=== PATIENT | male | born 1955 | race Caucasian/White ===

== ENCOUNTER → 2016-11-10 | Outpatient (CLI) | payer OTHER ==
--- NOTE | 2016-11-10 16:11 | CT ---
EXAMINATION TYPE: CT iac wo con DATE OF EXAM: 11/10/2016 COMPARISON: NONE HISTORY: Hearing loss,on the Lt, cholesteatoma CT DLP: 300mGycm. Automated exposure control for dose reduction was used. FINDINGS: The external auditory canals are patent bilaterally. Mastoid air cells show no evidence of abnormal opacification bilaterally. The middle ear ossicles are symmetric and unremarkable. There is no evidence of suspicious surrounding soft tissue density to suggest cholesteatoma. The scutum is preserved bilaterally. The epitympanum, mesotympanum, and hypotympanum are all symmetric and clear bilaterally. The cochlea and the semicircular canals are symmetric and unremarkable. Vestibular aqu educt and internal carotid canal appear unremarkable. Temporomandibular joints are maintained bilate rally. IMPRESSION: NO SIGNIFICANT ABNORMALITY SEEN TO ACCOUNT FOR PATIENT'S SYMPTOMS.
== END | disposition home or self-care (01) ==
LOC: RADCTMAIN 12:50
PROVIDERS: ATTEND Otolaryngology
DX: H71.90 Unspecified cholesteatoma, unspecified ear (principal); H91.90 Unspecified hearing loss, unspecified ear
CPT/HCPCS: 70480

== ENCOUNTER → 2017-09-30 | Outpatient (CLI) | payer OTHER | END | disposition home or self-care (01) | LOC: LABWHC1 15:26 | PROVIDERS: ATTEND Internal Medicine Gastroenterology | DX: K50.00 Crohn's disease of small intestine without complications (principal) | CPT/HCPCS: 36415 ==

== ENCOUNTER 2018-01-04 17:07 | Emergency (ER) | payer OTHER ==
[2018-01-04 17:31] VITALS: BP 158/98; PULSE 83; RESP 18; TEMP 98.3
[2018-01-04] MEDS ORDERED: DIPH,PERTUS(ACELL)TETVAC-LF 0.5 ML VIAL IM ONE (17:57)
--- NOTE | 2018-01-04 18:00 | ED ---
Wound/Laceration HPI - General Chief Complaint: Wound/Laceration Stated Complaint: finger laceration Time Seen by Provider: 01/04/18 17:53 Source: patient, RN notes reviewed Mode of arrival: ambulatory Limitations: no limitations - History of Present Illness Initial Comments: This is a 62-year-old male who presents to the emergency department with chief complaint of right finger laceration. Patient states that at 3:45 this evening he was cleaning his lawnmower. He states that the lawnmower lacerated his right fourth finger. Denies blood thinner use. States he has normal sensation and range of motion. Patient states he believes he is not up-to-date with tetanus vaccination. Denies any other injuries or trauma. Denies fever, chills , chest pain, shortness of breath, abdominal pain, nausea or vomiting, numbness or tingling, headache or vision changes. - Related Data Home Medications Medication Instructions Recorded Confirmed Adalimumab [Humira Pen] 1 tab PO BID 08/05/15 01/04/18 azaTHIOprine [Imuran] 1 tab PO BID 08/05/15 01/04/18 Previous Rx's Medication Instructions Recorded Cephalexin [Keflex] 500 mg PO Q12HR #20 cap 01/04/18 Allergies Allergy/AdvReac Type Severity Reaction Status Date / Time No Known Allergies Allergy Verified 01/04/18 17:29 Review of Systems ROS Statement: Those systems with pertinent positive or pertinent negative responses have been documented in the HPI. ROS Other: All systems not noted in ROS Statement are negative. Past Medical History Additional Past Medical History / Comment(s): chronns History of Any Multi-Drug Resistant Organisms: None Reported Additional Past Surgical History / Comment(s): colon surgery (2003) Past Psychological History: No Psychological Hx Reported Smoking Status: Never smoker Past Alcohol Use History: None Reported Past Drug Use History: None Reported General Exam - General Exam Comments Initial Comments: General: Awake and alert, well-developed; in no apparent distress. HEENT: Head atraumatic, normocephalic. Pupils are equal, round and reactive to light. Extraocular movements intact. Oropharynx moist without erythema or exudate. Neck: Supple. Normal ROM. Cardiovascular: Regular rate and rhythm. No murmurs, rubs or gallops. Chest symmetrical. Respiratory: Lungs clear to auscultation bilaterally. No wheezes, rales or rhonchi. Normal respiratory effort with no use of accessory muscles. Musculoskeletal: Normal range of motion of the right fourth finger. There is an approximately 2 cm flap-like laceration dorsal aspect of the right fourth finger between the MCP and over PIP joint. Sensation is intact. Radial pulses are 2+ equal and palpable bilaterally. Bleeding is controlled. Skin: Herrick, warm and dry without rashes. Neurological: Alert and oriented x3. CN II-XII grossly intact. Speech is fluent and answers are appropriate. No focal neuro deficits. Psychiatric: Normal mood and affect. No overt signs of depression or anxiety noted. Limitations: no limitations Course Vital Signs 01/04/18 17:29 Temperature 98.3 F Pulse Rate 83 Respiratory 18 Rate Blood Pressure 158/98 O2 Sat by Pulse 99 Oximetry Procedures - Laceration Laceration #1 Consent Obtained: verbal consent Indication: laceration Site: hand (dorsal right 4th finger) Size (cm): 2 Description: linear, flap Depth: simple, single layer Anesthetic Used: lidocaine 1% Anesthesia Technique: nerve block Amount (mls): 2 Pre-repair: wound explored, irrigated extensively, deep structures intact Type of Sutures: nylon Size of Sutures: 5-0 Number of Sutures: 5 Technique: simple, interrupted Patient Tolerated Procedure: well, no complications Medical Decision Making - Medical Decision Making This is a 62-year-old male who presents to the emergency department with chief complaint of right fourth finger laceration. Patient was made up-to-date with tetanus vaccination. Patient sustained an approximately 2 cm flap-like laceration to the dorsal aspect of the right fifth finger. Wound is thoroughly cleansed, irrigated and examined. Extensor tendon was visualized but no obvious injuries. Patient does have normal range of motion. Neurovascularly intact. 5 sutures were placed and patient tolerated well without complication. Patient will be started on Keflex antibiotics. He will be given contact information to follow-up with Dr. Hollingsworth if continuous pain or decreased range of motion of the finger. Patient is in agreement with plan and voices understanding. Vital signs are stable and he is in no acute distress. He will be discharged home at this time. All questions answered. - Radiology Data Radiology results: report reviewed Right fourth finger x-ray impression: No acute process. Disposition Clinical Impression: Finger laceration Disposition: HOME SELF-CARE Condition: Good Instructions: Finger Laceration (ED) Additional Instructions: Please take medications as prescribed. Please follow-up with Dr. Hollingsworth if continuous pain or decreased range of motion of the finger. Please follow up with primary care provider within 1-2 days. Return to emergency department if symptoms should worsen or any concerns arise. Prescriptions: Cephalexin [Keflex] 500 mg PO Q12HR #20 cap Is patient prescribed a controlled substance at d/c from ED?: No Referrals: Geo Ramos MD [Primary Care Provider] - 1-2 days Gagandeep Hollingsworth DO [Doctor of Osteopathic Medicine] - 1-2 days Time of Disposition: 19:21
--- NOTE | 2018-01-04 19:01 | XR ---
PROCEDURE: XR fourth finger RT - 3 views DATE AND TIME: 01/04/2018 6:44 PM REFERRING PHYSICIAN: Jessica Patel CLINICAL INDICATION: PH[facility], 4th finger lac lawnmower blade TECHNIQUE: Department protocol. COMPARISON: None FINDINGS: There is no fracture or malalignment. The soft tissues are definitive for radiopaque foreig n body. IMPRESSION: NO ACUTE PROCESS.
[2018-01-04] MEDS ORDERED: CEPHALEXIN 500 MG CAP PO STA (19:20)
== END 2018-01-04 19:34 | disposition home or self-care (01) ==
LOC: EC 17:07
DX: S61.214A Laceration without foreign body of right ring finger without damage to nail, initial encounter (principal); Z23 Encounter for immunization; Z87.19 Personal history of other diseases of the digestive system; Z79.899 Other long term (current) drug therapy; W28.XXXA Contact with powered lawn mower, initial encounter; Y93.89 Activity, other specified
CPT/HCPCS: 12001; 90471; 90715; 99283

== ENCOUNTER → 2018-05-09 | Outpatient (CLI) | payer OTHER ==
--- NOTE | 2018-05-09 16:14 | US ---
EXAMINATION TYPE: US thyroid st tissue head/neck DATE OF EXAM: 05/09/2018 COMPARISON: NONE CLINICAL HISTORY: R22.1 localized neck swelling. Patient states having an increase in the medication Humira and has noticed his anterior neck has increased in size. Right and left anterior neck scanned. No prominent masses, lesions or fluid collections identified. IMPRESSION: 1. No obvious cystic or solid area noted within the [id number] ultrasound neck.
== END | disposition home or self-care (01) ==
LOC: RADUSWWP 15:15
PROVIDERS: ATTEND Otolaryngology
DX: R22.1 Localized swelling, mass and lump, neck (principal)
CPT/HCPCS: 76536

== ENCOUNTER → 2022-05-02 | Outpatient (CLI) | payer OTHER | END | disposition home or self-care (01) | LOC: LABPAT 11:44 | PROVIDERS: ATTEND Orthopaedic Surgery | DX: Z01.812 Encounter for preprocedural laboratory examination (principal); M17.12 Unilateral primary osteoarthritis, left knee | CPT/HCPCS: 87070 ==

== ENCOUNTER 2022-05-26 10:37 | Day surgery (SDC) | payer OTHER ==
--- NOTE | 2022-05-25 09:47 | P.HPOR ---
History of Present Illness H&P Date: 05/25/22 Chief Complaint: Left knee pain The patient is a 66 year old male that presents with progressive left knee pain secondary to osteoarthrosis despite conservative measures including medications, injections and activity modifications. He notes pain that significantly limits his normal function and activities. Review of Systems as per HPI Past Medical History Additional Past Medical History / Comment(s): crohn's disease, leaky heart valve follows with [facility] History of Any Multi-Drug Resistant Organisms: None Reported Past Surgical History: Bowel Resection, Hernia Repair Additional Past Surgical History / Comment(s): colon surgery (2003), left knee arthroscopy Past Anesthesia/Blood Transfusion Reactions: No Reported Reaction Smoking Status: Former smoker Medications and Allergies Home Medications Medication Instructions Recorded Confirmed Type Adalimumab [Humira Pen] 1 injection INJ WEEKLY 08/05/15 05/20/22 History azaTHIOprine [Imuran] 1 tab PO BID 08/05/15 05/20/22 History Sertraline [Zoloft] 25 mg PO DAILY 05/20/22 05/20/22 History rOPINIRole HCL [rOPINIRole HCL ER 6 mg PO HS 05/20/22 05/20/22 History (XL)] Allergies Allergy/AdvReac Type Severity Reaction Status Date / Time No Known Allergies Allergy Verified 05/20/22 17:17 Physical Examination - Knee left Appearance: effusion Effusion grade: grade 2 Varus alignment in stance: 5 degrees Tenderness with palpation: medial Pain: with flexion Gait: limping ROM: extension: -5 degrees ROM: flexion: 110 degrees Strength: extension: 5/5 Strength: flexion: 5/5 Meniscal tests: medial meniscal tests: positive, medial joint line pain: positive Results The patient is a well developed well nourished male of mesomorphic habitus. HEENT exam is nonfocal, neck is supple. He has painless passive ROM of his left hip. Straight leg raise is negative. His distal neurovascular exam is intact in the left lower extremity. - Diagnostic results Knee x-ray: image reviewed (3 views of the left knee show severe medial compartment osteoarthrosis with bone on bone changes.) Assessment and Plan Assessment: Left knee severe tricompartmental osteoarthrosis crohn's disease Plan: I talked to the patient at length regarding his condition along with treatment options. He opts to proceed with surgery. We will plan to proceed with left total knee arthroplasty. Risks and benefits were discussed at length in layman's terms. We will institute DVT prophylaxis postoperatively.
[~2022-05-26 10:37] MED LIST: ACETAMINOPHEN TAB 500 MG TAB PO PRN; DEXAMETHASONE SOD PHOSPHATE 4 MG/ML 1 ML VIAL IV ONE; HYDROmorphone 0.5 MG/0.5 ML SYRINGE IVP PRN; LIDOCAINE 1% (10MG/ML) FOR IV START INTRADERMA PRN; MELOXICAM 7.5 MG TAB PO PRN; ONDANSETRON 4 MG/2 ML VIAL IVP ONE; TRANEXAMIC ACID IN NACL,ISO-OS 1,000 MG in SALINE 1 100ML.BAG IVPB PRN
[2022-05-26] MEDS: LACTATED RINGERS 1,000 ML IV SCH (11:36)
[2022-05-26] MEDS ORDERED: MIDAZOLAM 2 MG/2 ML VIAL IVP ONE (11:40)
[2022-05-26] MEDS ORDERED: fentaNYL (PF) 50 MCG/1 ML VIAL IVP ONE (11:42)
[2022-05-26] MEDS ORDERED: MIDAZOLAM 2 MG/2 ML VIAL ONE (12:50)
[2022-05-26] MEDS ORDERED: PROPOFOL 10 MG/ML 20 ML VIAL IV ONE (12:50)
[2022-05-26] MEDS ORDERED: LIDOCAINE 2% INJ 20 MG/ML (2 ML VIAL) ONE (12:50)
[2022-05-26] MEDS ORDERED: SUCCINYLCHOLINE CHLORIDE 200 MG/10 ML VIAL IV ONE (12:50)
[2022-05-26] MEDS ORDERED: HYDROmorphone (PF) 1 MG/ML ONE (12:50)
[2022-05-26] MEDS ORDERED: fentaNYL (PF) 50 MCG/ML 2 ML AMP ONE (12:50)
[2022-05-26] MEDS ORDERED: ROCURONIUM 10 MG/ML (5 ML VIAL) IV ONE (12:50)
[2022-05-26] MEDS ORDERED: ROPIVACAINE 5 MG/ML 30 ML VIAL ONE (12:50)
[2022-05-26] MEDS ORDERED: GLYCOPYRROLATE 0.2 MG/ML 2 ML VIAL ONE (12:50)
[2022-05-26] MEDS ORDERED: NEOSTIGMINE 1 MG/ML 10 ML VIAL ONE (12:50)
[2022-05-26] MEDS ORDERED: DEXAMETHASONE SOD PHOSPHATE 4 MG/ML 1 ML VIAL ONE (12:50)
[2022-05-26] MEDS ORDERED: ceFAZolin 3,000 MG in SODIUM CHLORIDE 0.9% IRRIGATIO 3,000 ML IRRIGATION ONE (13:20)
[2022-05-26] MEDS ORDERED: LACTATED RINGERS 1,000 ML IV ONE (14:33)
[2022-05-26] MEDS ORDERED: HYDROmorphone 0.5 MG/0.5 ML SYRINGE IVP PRN (14:34)
[2022-05-26] MEDS ORDERED: HYDROcodone/APAP 5-325MG 1 EACH TAB PO PRN (14:34)
[2022-05-26] MEDS ORDERED: MAGNESIUM HYDROXIDE 2,400 MG/10 ML CUP PO PRN (14:34)
[2022-05-26] MEDS ORDERED: HYDROmorphone 1 MG/ML 1 ML SYRINGE IVP PRN (14:34)
[2022-05-26] MEDS ORDERED: NALOXONE 0.4 MG/ML 1 ML VIAL IV PRN (14:34)
[2022-05-26] MEDS ORDERED: hydrOXYzine pamoate 25 MG CAP PO PRN (14:37)
--- NOTE | 2022-05-26 14:58 | P.OP ---
Date of Procedure: 05/26/22 Preoperative Diagnosis: Left knee severe tricompartmental osteoarthritis Postoperative Diagnosis: Same Procedure(s) Performed: Left total knee arthroplastycementedcruciate retaining Implants: Depuy Attune size 6 cemented femoral component, size 5 cemented tibial component, 9 mm articular surface, 35 mm cemented patellar component. This is a cruciate retaining implant. Anesthesia: [facility] Surgeon: Alex Arora Managed Care Coordinator #1: Darian Merino Estimated Blood Loss (ml): 50 Pathology: other (Bone fragments) Condition: stable Disposition: PACU Indications for Procedure: The patient's a 66-year-old male who presents with progressive left knee pain secondary to osteoarthritis despite conservative measures. A discussion of the risks and benefits of operative intervention versus continued conservative measures made with patient. He opted to proceed with surgery. Operative risks to include infection, neurovascular injury, development of blood clots, fracture, component loosening/failure and possible need for subsequent procedures was discussed. Informed consent was obtained. Operative Findings: As below Description of Procedure: The patient was brought to the operating room, and after induction of spinal anesthesia the left lower extremity was prepped and draped in a normal fashion. The tourniquet was inflated to 270 mmHg. A longitudinal incision extending 3 finger breaths above the superior pole of the patella extending to the medial aspect the tibial tubercle was then made. The skin and subcutaneous tissues were divided sharply. Electrocautery was used for hemostasis. A medial parapatellar arthrotomy was then performed. The medial soft tissues to include the superficial and deep portions of the medial collateral ligament as well as t he medial hamstring tendons were elevated subperiosteally. The proximal medial tibia osteophytes were carefully removed. The patella was everted. The knee was flexed. A portion of the retropatellar fat pad was excised sharply. The anterior cruciate ligament was sacrificed. A starting hole was made in the distal femur 1 cm anterior to the posterior cruciate origin. An intramedullary femoral guide was gently inserted planning on 5 valgus distal cut with 9 mm distal resection. The cutting block was pinned in place. The distal cut was then made. The posterior referencing sizing guide was utilized. 3 of external rotation was built into the system and verified off the trans- epicondylar axis and the posterior condyles. I felt size 6 was most appropriate. The cutting block was pinned in place. The anterior, posterior, and chamfer cuts were then made. The bone fragments were removed. A sulcus cut was then made with the appropriate guide. The trial size 6 femoral component w as then placed and was fully seated. There was good anterior to posterior and medial to lateral fit. The distal peg holes were then drilled. The trial component was then removed. Attention was then paid towards preparing the proximal tibia. An extra medullary guide was utilized in line with the tibial shaft and second metatarsal distally. A 7 posterior slope was planned. I planned on 2 mm resection from the medial compartment. The cutting block was pinned in place. The proximal tibial cut was then made. The bone was removed in one fragment. The remnants of the medial and lateral menisci were excised the capsule junction with electrocautery. The tibia sized most appropriately at size 5. The posterior osteophytes off the distal femur were carefully removed with a curved osteotome. The trial tibial and femoral components were placed along with a 9 millimeters articular surface. I was able to obtain full flexion and extension with good stability with varus and valgus stress. After several flexion and extension cycles, the tibial rotation was marked with electrocautery in line with the medial one third of the tibial tubercle. Attention was then paid towards preparing the patella. A patella reamer was utilized taking this down to 14 mm of bone stock. A good flush cut was made. The patella sized most appropriately at 35 millimeters. The peg holes were then drilled. The trial component was placed. The knee was taken through a range of motion. I had good patellofemoral tracking with no hands technique. The trial components were then removed. The tibia was prepared in the appropriate rotation with appropriate drill and keel punch. The flexion and extension gaps were checked and felt to be symmetric. The bony surfaces were prepared with pulsatile lavage and dried. The deep tibial component was then cemented in place and was fully seated. Excess cement was removed. The femoral component was cemented in place and was fully seated. Again excess cement was removed. The trial 9 millimeters surface was then inserted in the knee was put in full extension. The patella component was cemented in place. After the cement had sufficiently hardened, the knee was again taken through a range of motion. Again there was good stability in flexion and extension with varus and valgus stress. The trial articular surface was then removed. The final articular surface was placed and was impacted. Care was taken to avoid any soft tissue interposition. Pulsatile lavage was again utilized. The tourniquet was deflated with approximately 60 minutes total tourniquet time. There was minimal drainage therefore a deep drain was not placed. The medial parapatellar arthrotomy was then closed with #2 Ethibond suture. The subcutaneous tissues were reapproximated interrupted 2- 0 Vicryl sutures. The skin was reapproximated with 3-0 subarticular strata fix suture. Skin tape and adhesive was applied. A sterile dressing was applied. The patient was then awoken from sedation and transferred to recovery room in good condition. Blood loss was estimated at 50 milliliters. No complications were incurred. Sponge and needle counts were correct at the end the case. Darian JOSE assisted during the major components this case to include exposure, bone resection, and implantation.
[2022-05-26] MEDS ORDERED: ROPIVACAINE 0.2%-NS ON-Q PUMP 1,090 MG, EMPTY PAIN BALL 1 EACH MISCELLANE PRN (15:12)
--- NOTE | 2022-05-26 15:14 | P.ANPRN ---
Procedure Note - Anesthesia - Nerve Block Performed Left Adductor Canal Time Out Performed: Yes (11:40) Date of Procedure: 05/26/22 Procedure Start Time: :40 Procedure Stop Time: :48 Location of Patient: PreOp Indication: Acute Post-Operative Pain, Requested by Surgeon (Dr Arora) Sedation Type: Sedate with meaningful contact maintained Preparation: Sterile Prep, Sterile Dressing Position: Supine Catheter: Indwelling Needle Types: Pajunk Needle Gauge: 21 Ultrasound used to visualize needle placement: Yes Ultrasound used to observe medication spread: Yes Injectate: 0.5% Ropivacaine (see comment for volume) (15cc) Blood Aspirated: No Pain Paresthesia on Injection Noted: No Resistance on Injection: Normal Image Stored and Saved: Yes Events: Uneventful and Well Tolerated
--- NOTE | 2022-05-26 15:15 | P.ANPRN ---
Procedure Note - Anesthesia - Nerve Block Performed Left iPack Time Out Performed: Yes Date of Procedure: 05/26/22 Procedure Start Time: 11:49 Procedure Stop Time: 11:54 Location of Patient: PreOp Indication: Acute Post-Operative Pain, Requested by Surgeon (Dr Arora) Sedation Type: Sedate with meaningful contact maintained Preparation: Sterile Prep Position: Supine Catheter: None Needle Types: Pajunk Needle Gauge: 21 Ultrasound used to visualize needle placement: Yes Ultrasound used to observe medication spread: Yes Injectate: 0.5% Ropivacaine (see comment for volume) (15cc +5cc PF Normal saline) Blood Aspirated: No Pain Paresthesia on Injection Noted: No Resistance on Injection: Normal Image Stored and Saved: Yes Events: Uneventful and Well Tolerated
--- NOTE | 2022-05-26 16:39 | P.CONS ---
History of Present Illness - Reason for Consult Consult date: 05/26/22 med management - History of Present Illness Patient is a 66-year-old male with history of osteoarthritis and Crohn's disease presenting for elective left total knee arthroplasty. [facility] has been consulted for medical management. Currently, patient denies any chest pain, shortness of breath, abdominal pain, palpitations, lightheadedness, diarrhea, constipation, nausea, vomiting, or urinary complaints. He denies any significant pain in his left knee. He denies any smoking, alcohol use, or illicit drug use. Patient seen and examined at bedside. Pertinent positives and negatives as discussed in HPI, a complete review of systems was performed and all other systems are negative. Vital signs reviewed General: nontoxic, no distress, appears at stated age Derm: warm, dry, dressing clean, dry, intact Head: atraumatic, normocephalic, symmetric Eyes: EOMI, no lid lag, anicteric sclera, pupils equal round reactive to light ENT: Nose and ears atraumatic Neck: No thyromegaly, supple Mouth: no lip lesion, mucus membranes moist Cardiovascular: S1S2 reg, no murmur, no edema Lungs: clear to auscultation bilateral, no rhonchi, no rales, no wheeze, no accessory muscle use Abdominal: soft, nontender to palpation, no guarding, no appreciable organomegaly Ext: no gross muscle atrophy, muscle strength muscle strength 5 out of 5 in all 4 extremities, no contractures Neuro: CN II-XII grossly intact Psych: Alert, oriented, appropriate affect Assessment/Plan: Osteoarthritis Status post left knee total arthroplasty -Management per orthopedic surgery including pain and DVT prophylaxis -PT/OT Chronic medical problems: Depression Crohn's disease - hold Humira -Continue other home medications Thank you for allowing us to participate in the care of this pleasant patient. Do not hesitate to contact us with questions. Someone can be reached from the [facility] hospitalist group all hours of the day at [phone] or via [employer]. Past Medical History Additional Past Medical History / Comment(s): crohn's disease, leaky heart valve follows with stable hand History of Any Multi-Drug Resistant Organisms: None Reported Past Surgical History: Bowel Resection, Hernia Repair Additional Past Surgical History / Comment(s): colon surgery (2003), left knee arthroscopy Past Anesthesia/Blood Transfusion Reactions: No Reported Reaction Past Psychological History: Anxiety Smoking Status: Former smoker Past Alcohol Use History: None Reported Additional Past Alcohol Use History / Comment(s): quit 30 plus years ago Past Drug Use History: None Reported Medications and Allergies Home Medications Medication Instructions Recorded Confirmed Type Adalimumab [Humira Pen] 1 injection INJ WEEKLY 08/05/15 05/26/22 History azaTHIOprine [Imuran] 1 tab PO BID 08/05/15 05/26/22 History Sertraline [Zoloft] 25 mg PO DAILY 05/20/22 05/26/22 History rOPINIRole HCL [rOPINIRole HCL ER 6 mg PO HS 05/20/22 05/26/22 History (XL)] Allergies Allergy/AdvReac Type Severity Reaction Status Date / Time dexamethasone Allergy Rash/Hives Verified 05/26/22 12:06 Physical Exam Vitals: Vital Signs Temp Pulse Resp BP Pulse Ox 05/26/22 16:19 97.5 F L 76 18 134/81 97 05/26/22 15:46 83 16 130/71 97 05/26/22 15:30 82 16 116/63 99 05/26/22 15:15 84 16 119/64 99 05/26/22 15:00 97.3 F L 78 16 152/81 97 05/26/22 12:07 86 16 123/77 98 05/26/22 11:20 97.7 F 92 16 176/99 97 Intake and Output 05/26/22 05/26/22 05/26/22 06:59 14:59 22:59 Intake Total 1051 200 Output Total 50 Balance 1001 200 Intake: IV 1051 200 Output: Estimated Blood Loss 50 Other: Weight 71.6 kg 71.6 kg
--- NOTE | 2022-05-26 16:40 | XR ---
EXAMINATION TYPE: XR knee limited LT DATE OF EXAM: 05/26/2022 COMPARISON: NONE HISTORY: 66-year-old male evaluation for postoperative abnormality in alignment TECHNIQUE: 2 views FINDINGS: Images show placement of left total knee arthroplasty. Both distal femoral and proximal tibial compon ents of the prosthesis are well seated without periprosthetic fracture. Alignment grossly anatomic. A nterior soft tissue swelling with soft tissue air as well as intra-articular air relating to recent o peration. IMPRESSION: Uncomplicated postoperative appearance left total knee arthroplasty.
[2022-05-26] MEDS: HYDROcodone/APAP 7.5-325MG 1 EACH TAB PO PRN (19:37)
[2022-05-26] MEDS ORDERED: SENNOSIDES-DOCUSATE SODIUM 1 EACH TAB PO SCH (21:00)
[2022-05-26] MEDS: azaTHIOprine 50 MG TAB PO SCH (22:11)
[2022-05-27] MEDS: HYDROcodone/APAP 7.5-325MG 1 EACH TAB PO PRN (06:17)
[2022-05-27] MEDS: LACTATED RINGERS 1,000 ML IV SCH (06:23)
--- NOTE | 2022-05-27 07:07 | P.PN ---
Progress Note - Text The patient is status post left adductor canal catheter placement. The catheter was placed for postoperative pain control, status post total left knee arthroplasty. Ropivacaine 0.2% is infusing at 8 mLs per hour. The patient has no complaints of left lower extremity numbness or weakness. Patient's VAS score is 2-10. The pain is in the posterior portion of the knee. Assessment: Patient's adductor canal catheter is in place and working appropriately. Plan: continue infusion and adjust it as needed.
[2022-05-27] MEDS: azaTHIOprine 50 MG TAB PO SCH (08:22)
[2022-05-27 08:54] VITALS: BP 102/54; PULSE 63; RESP 18; TEMP 97.8
[2022-05-27] MEDS ORDERED: RIVAROXABAN 10 MG TAB PO SCH (09:00)
[2022-05-27] MEDS ORDERED: SERTRALINE 25 MG TAB PO SCH (09:00)
--- NOTE | 2022-05-27 09:54 | P.DS ---
Providers Date of admission: 05/26/2022 Expected date of discharge: 05/27/22 Attending physician: Alex Arora Consults: 05/26/22 14:36 Consult Physician Routine Consulting Provider: Negra Wright Consult Reason/Comments: Medical Management s/p left total knee arthroplasty Do you want consulting provider notified?: Yes Primary care physician: Ana Davis Hospital Course: Date of admission: 05/26/2022 Date of discharge: 05/27/2022 Admission diagnosis: left knee osteoarthritis Discharge diagnosis: same Attending physician: Dr. Arora Surgical procedures: left total knee arthroplasty Brief history: Patient is a 66-year-old male with a history of progressive primary left knee osteoarthritis. At this point patient has failed conservative treatment measures and has opted to proceed with a elective left total knee arthroplasty. Hospital course: Details of patient's surgery can be found in operative report. Patient tolerated the procedure well and was subsequently transported to orthopedic floor. Patient's orthopeidc and medical care was provided daily. Patient had daily laboratory tests performed for evaluation of overall blood counts. Patient had daily physical therapy to include strengthening range of motion as well as education with walker ambulation. Patient was treated with Xarelto for their postoperative DVT prophylaxis during their inpatient stay. Patient was noted to have a relatively uneventful postoperative course. Patient reported satisfactory pain control with oral pain medications by postoperative day 1. Patient showed satisfactory progress with physical therapy. Patient moved steadily through the program and had no difficulty meeting the goals by postoperative day 1. Given patient's otherwise satisfactory course and having met physical therapy goals, plan is to discharge patient home with health services on postoperative day 1. Discharge condition/disposition: Patient will be discharged home with health services in stable condition. Discharge medications: Instructions are given on resumption of patient's normal daily medications per primary care recommendation, in addition patient will be prescribed [place] 7.5 mg/325 mg; Eliquis 12 Colace; Eliquis 2.5 mg BID x 2 weeks Discharge instructions: 1. Wound care and infection precautions, keep incision dry and covered while showering, no lotions, creams, moisturizers. No soaking, tubs, pools, hottubs. Do not scrub over the incision. 2. Weight-bear as tolerated with walker / cane until follow-up. 3. Ice and elevate when necessary. Do not exceed 20 minutes per hour with ice pack. 4. Utilize compression sleeve until seen at first follow up appointment. 5. Visiting nursing care. 6. Home physical therapy including home CPM. 7. Pain meds and anticoagulants per prescription. 8. Pain medication has potential to cause constipation. Increase oral fluid and fiber intake. Contact primary care provider if you have not had a bowel movement within 48 hours after discharge 9. No anti-inflammatory medication until discussed at first post operative visit, this including Motrin, Aleve, Mobic, Diclofenac 10. Follow up in office at 2 weeks postop with Osorio Sullivan PA-C / Darian Merino PA-C 11. Follow up with your primary care doctor 7-10 days after discharge. 12. Contact [facility] with any questions, . keep incision clean, dry, intact. while showering, cover fusion tape with Saran wrap. Keep fusion tape on until follow-up appointment in office in 2 weeks Assessment: left knee osteoarthritis Procedures: left total knee arthroplasty Patient Condition at Discharge: Good Plan - Discharge Summary Discharge Rx Participant: Yes New Discharge Prescriptions: New Docusate [Colace] 100 mg PO DAILY #30 capsule HYDROcodone/APAP 7.5-325MG [[place] 7.5] 1 - 2 each PO Q6HR PRN #36 tab PRN Reason: Pain Apixaban [Eliquis] 2.5 mg PO BID #60 tab No Action Adalimumab [Humira Pen] 1 injection INJ WEEKLY azaTHIOprine [Imuran] 1 tab PO BID rOPINIRole HCL [rOPINIRole HCL ER (XL)] 6 mg PO HS Sertraline [Zoloft] 25 mg PO DAILY Discharge Medication List Adalimumab [Humira Pen] 1 injection INJ WEEKLY 08/05/15 [History] azaTHIOprine [Imuran] 1 tab PO BID 08/05/15 [History] Sertraline [Zoloft] 25 mg PO DAILY 05/20/22 [History] rOPINIRole HCL [rOPINIRole HCL ER (XL)] 6 mg PO HS 05/20/22 [History] Apixaban [Eliquis] 2.5 mg PO BID #60 tab 05/27/22 [Rx] Docusate [Colace] 100 mg PO DAILY #30 capsule 05/27/22 [Rx] HYDROcodone/APAP 7.5-325MG [[place] 7.5] 1 - 2 each PO Q6HR PRN #36 tab 05/27/22 [Rx] Follow up Appointment(s)/Referral(s): Ana Davis MD [Primary Care Provider] - 06/04/22 11:00 am Darian Merino PAC [PHYSICIAN INFORMATION TECHNOLOGY SECURITY ANALYST] - 06/11/22 9:10 am [facility] [NON-STAFF] - As Needed (Continuous Passive Motion knee machine and walker.) [facility] [NON-STAFF] - As Needed Patient Instructions/Handouts: Knee Replacement (DC) Activity/Diet/Wound Care/Special Instructions: FMLA paperwork faxed to 's office. Orthopedic Discharge Instructions: 1. Wound care and infection precautions, keep incision dry and covered while showering, no lotions, creams, moisturizers. No soaking, pools, hot tubs. Do not scrub over incision. 2. Weight-bear as tolerated with walker / cane until follow-up. 3. Ice and elevate when necessary. Do not exceed 20 minutes per hour with ice pack. 4. Utilize compression sleeve until seen at first follow up appointment. 5. Pain meds and anticoagulants per prescription. 6. Pain medication has potential to cause constipation. Increase oral fluid and fiber intake. Contact primary care provider if you have not had a bowel movement within 48 hours after discharge. 7. No anti-inflammatory medication until discussed at first post operative visit, this including Motrin, Aleve, Mobic, Diclofenac. 8. Follow up in office at 2 weeks postop with Osorio Sullivan PA-C / Darian Merino PA-C 9. Follow up with your primary care doctor 7-10 days after discharge. 10. Contact [facility] with any questions, . Keep incision clean, dry, intact. While showering, cover fusion tape with Saran wrap. Keep fusion tape on until follow-up appointment in office at 2 weeks. Discharge Disposition: HOME WITH HOME HEALTH SERVICES
--- NOTE | 2022-05-27 10:10 | P.PN ---
Subjective Progress Note Date: 05/27/22 Principal diagnosis: left knee osteoarthritis patient seen at bedside this morning resting comfortably sitting up in chair. Patient says he does not have a walker for home. Patient says he has urinated since surgery yesterday. Patient says he has not had bowel movement yet, ho wever, patient says he has been passing gas. Patient says PT did go well th morning. Patient states most of the pain is at front of his knee. Patient denies chest pain, fever, shortness of breath, nausea, vomiting, change in vision, loss of bowel/bladder control. Objective - Vital Signs Vital signs: Vital Signs Temp 97.8 F 05/27/22 08:00 Pulse 63 05/27/22 08:00 Resp 18 05/27/22 08:00 BP 102/54 05/27/22 08:00 Pulse Ox 97 05/27/22 08:00 FiO2 Intake & Output 05/26/22 05/27/22 05/27/22 18:59 06:59 18:59 Intake Total 1251 780 Output Total 50 Balance 1201 780 Weight 71.6 kg Intake: IV 1251 Intake, IV Titration 300 Amount Lactated Ringers 1,000 ml 200 @ 20 mls/hr IV .Q24H [facility] Rx#:[id number] ceFAZolin 2 gm In Sodium 100 Chloride 0.9% 50 ml @ 100 mls/hr IVPB Q8H [facility] Rx#: [id number] Oral 480 Output: Estimated Blood Loss 50 Other: # Voids 0 2 - Exam left knee: Incision is clean, dry, and intact. The exofin fusion tape is in good condition. There is minimal soft tissue swelling and ecchymosis surrounding the medial and lateral aspects of the incision. Calf is soft, no tenderness with palpation. Plantar flexion, dorsiflexion, EHL, FHL are intact. Sensory exam to light touch throughout the extremity is intact, dorsal pedis pulses 2+. Assessment and Plan Assessment: 1. left knee osteoarthritis - Postop day 1 status post left total knee arthroplasty. Plan: 1. left knee osteoarthritis - patient stable at bedside this morning. Discharge home today with health services. 2. Appreciate medical management 3. Pain management - [place] 4. DVT ppx - xarelto in hospital. Going home with Eliquis. 2.5 mg BID x 2 weeks 5. GI ppx - senna in hospital. going home with colace 6. PT/OT - WBAT w/walker 7. Encourage incentive spirometer use 8. discharge planning - home with health services today. Time with Patient: Less than 30
[2022-05-27 10:19] LABS: Basophils # (A) 0.01 X 10*3/uL (0.00-0.10); Basophils % (A) 0.1 %; Eosinophils # (A) 0 X 10*3/uL (0.04-0.35); Eosinophils % (A) 0 %; HCT 34.1 % (39.6-50.0); HGB 11.7 g/dL (13.0-17.0); Immature Grans, Automated 0.3 %; Lymphocytes # (A) 1.31 X 10*3/uL (0.90-5.00); Lymphocytes % (A) 12.3 %; MCH 30.9 pg (27.0-32.0); MCHC 34.3 g/dL (32.0-37.0); Mean Platelet Volume 9.2 fL (9.5-12.2); Monocytes # (A) 1.19 X 10*3/uL (0.20-1.00); Monocytes % (A) 11.1 %; NRBC Per 100 WBC 0 /100 WBCS (0.0-0.0); Neutrophils # (A) 8.14 X 10*3/uL (1.80-7.70); Neutrophils % (A) 76.2 %; Platelet Count 262 X 10*3/uL (140-440); RBC 3.79 X 10*6/uL (4.40-5.60); RDW 12.3 % (11.5-14.5); WBC 10.68 X 10*3/uL (4.50-10.00)
--- NOTE | 2022-05-27 10:42 | P.PN ---
Subjective Progress Note Date: 05/27/22 Principal diagnosis: med management Subjective: Patient seen and examined at bedside. No acute events overnight. He complains of minimal pain in his left knee. He denies any chest pain, shortness of breath, abdominal pain, nausea, vomiting, diarrhea, constipation, or urinary complaints. He denies having a bowel movement, but has been passing gas. Pertinent positives and negatives as discussed above, a complete review of systems was performed and all other systems are negative. Vitals Signs Reviewed. General: nontoxic, no distress, appears at stated age Derm: warm, dry, left knee dressing clean, dry, intact Head: atraumatic, normocephalic, symmetric Eyes: EOMI, no lid lag, anicteric sclera, pupils equal round reactive to light ENT: Nose and ears atraumatic Neck: No thyromegaly, supple Mouth: no lip lesion, mucus membranes moist Cardiovascular: S1S2 reg, no murmur, no edema Lungs: clear to auscultation bilateral, no rhonchi, no rales, no wheeze, no accessory muscle use Abdominal: soft, nontender to palpation, no guarding, no appreciable organomegaly Ext: no gross muscle atrophy, muscle strength muscle strength 5 out of 5 in all 4 extremities, no contractures Neuro: CN II-XII grossly intact Psych: Alert, oriented, appropriate affect Assessment and Plan: Osteoarthritis Status post left knee total arthroplasty -Management per orthopedic surgery including pain and DVT prophylaxis -PT/OT Chronic medical problems: Anxiety Crohn's disease - hold Humira, will resume this upcoming Wednesday. -Continue other home medications Patient medically optimized for discharge home. Thank you for allowing us to participate in the care of this pleasant patient. Do not hesitate to contact us with questions. Someone can be reached from the [facility] [place] hospitalist group all hours of the day at [phone] or via [employer]. Objective - Vital Signs Vital signs: Vital Signs Temp 97.8 F 05/27/22 08:00 Pulse 63 05/27/22 08:00 Resp 18 05/27/22 08:00 BP 102/54 05/27/22 08:00 Pulse Ox 97 05/27/22 08:00 FiO2 Intake & Output 05/26/22 05/27/22 05/27/22 18:59 06:59 18:59 Intake Total 1251 780 Output Total 50 Balance 1201 780 Weight 71.6 kg Intake: IV 1251 Intake, IV Titration 300 Amount Lactated Ringers 1,000 ml 200 @ 20 mls/hr IV .Q24H [facility] Rx#:[id number] ceFAZolin 2 gm In Sodium 100 Chloride 0.9% 50 ml @ 100 mls/hr IVPB Q8H [facility] Rx#: [id number] Oral 480 Output: Estimated Blood Loss 50 Other: # Voids 0 2 - Labs CBC & Chem 7: 05/27/22 06:47 Labs: Abnormal Lab Results - Last 24 Hours (Table) 05/27/22 Range/Units 06:47 WBC 10.68 H (4.50-10.00) X 10*3/uL RBC 3.79 L (4.40-5.60) X 10*6/uL Hgb 11.7 L (13.0-17.0) g/dL Hct 34.1 L (39.6-50.0) % MPV 9.2 L (9.5-12.2) fL Neutrophils # 8.14 H (1.80-7.70) X 10*3/uL Monocytes # 1.19 H (0.20-1.00) X 10*3/uL Eosinophils # 0 L (0.04-0.35) X 10*3/uL
== END 2022-05-27 14:52 | disposition home health service (06) ==
LOC: OR 10:37 → 4SSUR 15:00 → OR 05-27 14:52
PROVIDERS: ATTEND Orthopaedic Surgery
DX: M17.12 Unilateral primary osteoarthritis, left knee (principal); G89.18 Other acute postprocedural pain; M25.762 Osteophyte, left knee; M25.462 Effusion, left knee; K50.90 Crohn's disease, unspecified, without complications; Z87.891 Personal history of nicotine dependence; Z79.899 Other long term (current) drug therapy
CPT/HCPCS: 97161; 64999; 64448; 76942; 85025; 73560; 27447; C1713 ×2; C1776; C1751; J7500 ×2; J2250; J0330; J1100; J2710; J0690 ×3; J2405; J3010 ×2; J1170; J2795; J2704; J2001; 88300

== ENCOUNTER → 2023-02-08 | Outpatient (CLI) | payer MEDICARE ==
[2023-02-08 17:28] LABS: ALT 12 U/L (10-49); AST 19 U/L (14-35); Albumin/Globulin Ratio 1.18 Ratio (1.60-3.17); Alkaline Phosphatase 77 U/L (41-126); Calcium 9.3 mg/dL (8.7-10.3); Carbon Dioxide 29.1 mmol/L (21.6-31.8); Chloride 103 mmol/L (96-109); Globulin 3.4 d/dL (1.6-3.3); Glucose 92 mg/dL (70-110); Potassium 4.9 mmol/L (3.5-5.5); Sodium 140 mmol/L (135-145); Total Bilirubin 0.3 mg/dL (0.3-1.2); Total Protein 7.4 d/dL (6.2-8.2)
[2023-02-08 18:22] LABS: Basophils # (A) 0.09 X 10*3/uL (0.00-0.10); Basophils % (A) 1.4 %; Eosinophils # (A) 0.13 X 10*3/uL (0.04-0.35); HCT 43.8 % (39.6-50.0); HGB 14.1 d/dL (13.0-17.0); Lymphocytes # (A) 1.07 X 10*3/uL (0.90-5.00); Lymphocytes % (A) 16.6 %; MCH 30.3 pg (27.0-32.0); MCHC 32.2 d/dL (32.0-37.0); Mean Platelet Volume 9.4 FL (9.5-12.2); Monocytes # (A) 0.66 X 10*3/uL (0.20-1.00); Monocytes % (A) 10.2 %; NRBC Per 100 WBC 0 X 10*3/uL (0.00-0.01); Neutrophils # (A) 4.48 X 10*3/uL (1.80-7.70); Neutrophils % (A) 69.3 %; Platelet Count 324 X 10*3/uL (140-440); RBC 4.66 X 10*6/uL (4.40-5.60); RDW 12.7 % (11.5-14.5); WBC 6.46 X 10*3/uL (4.50-10.00)
== END | disposition home or self-care (01) ==
LOC: LABWHC1 08:48
PROVIDERS: ATTEND Internal Medicine Gastroenterology
DX: K50.90 Crohn's disease, unspecified, without complications (principal)
CPT/HCPCS: 36415; 80053; 85025; 86140

== ENCOUNTER → 2023-04-28 | Outpatient (CLI) | payer MEDICARE ==
[2023-04-28 16:08] LABS: ALT 14 U/L (10-49); AST 16 U/L (14-35); Albumin/Globulin Ratio 1.38 Ratio (1.60-3.17); Alkaline Phosphatase 71 U/L (41-126); Blood Urea Nitrogen 12.7 mg/dL (9.0-27.0); Calcium 8.8 mg/dL (8.7-10.3); Carbon Dioxide 26.3 mmol/L (21.6-31.8); Chloride 104 mmol/L (96-109); Globulin 2.9 g/dL (1.6-3.3); Glucose 83 mg/dL (70-110); Potassium 4.6 mmol/L (3.5-5.5); Sodium 140 mmol/L (135-145); Total Bilirubin 0.3 mg/dL (0.3-1.2); Total Protein 6.9 g/dL (6.2-8.2)
[2023-04-28 16:22] LABS: Basophils % (A) 1.4 %; Eosinophils # (A) 0.17 X 10*3/uL (0.04-0.35); Eosinophils % (A) 2.4 %; HCT 42.7 % (39.6-50.0); HGB 14.4 g/dL (13.0-17.0); Lymphocytes # (A) 1.27 X 10*3/uL (0.90-5.00); Lymphocytes % (A) 18.2 %; MCHC 33.7 g/dL (32.0-37.0); MCV 91.8 FL (80.0-97.0); Mean Platelet Volume 9.1 FL (9.5-12.2); Monocytes # (A) 0.89 X 10*3/uL (0.20-1.00); Monocytes % (A) 12.8 %; NRBC Per 100 WBC 0 X 10*3/uL (0.00-0.01); Neutrophils # (A) 4.48 X 10*3/uL (1.80-7.70); Neutrophils % (A) 64.5 %; Platelet Count 284 X 10*3/uL (140-440); RBC 4.65 X 10*6/uL (4.40-5.60); RDW 13.1 % (11.5-14.5); WBC 6.96 X 10*3/uL (4.50-10.00)
== END | disposition home or self-care (01) ==
LOC: LABWHC1 09:53
PROVIDERS: ATTEND Internal Medicine Gastroenterology
DX: K50.90 Crohn's disease, unspecified, without complications (principal)
CPT/HCPCS: 36415; 80053; 85025; 86140